=== PATIENT | male | born 1985 | race African-American/Black ===

== ENCOUNTER 2017-11-07 16:06 | Emergency (ER) | payer SELFPAY ==
[2017-11-07 17:20] LABS: AUTOMATED NEUTROPHIL # 2.5 TH/MM3 (1.8-7.7); BASOPHIL # 0.1 TH/MM3 (0-0.2); BASOPHIL % 2.4 % (0.0-2.0); HEMATOCRIT 44.9 % (39.0-51.0); HEMO FLAGS DIFF FINAL; HEMOGLOBIN 14.4 GM/DL (13.0-17.0); LYMPH % 29.4 % (9.0-44.0); LYMPHOCYTE # 1.4 TH/MM3 (1.0-4.8); MEAN CELL VOLUME 93.9 FL (80.0-100.0); MEAN PLATELET VOLUME 9.4 FL (7.0-11.0); MONO % 17.4 % (0.0-8.0); MONOCYTE # 0.8 TH/MM3 (0-0.9); NEUT % 50.8 % (16.0-70.0); PLATELET COUNT 217 TH/MM3 (150-450); RED BLOOD COUNT 4.78 MIL/MM3 (4.50-5.90); RED CELL DISTRIBUTION WIDTH 13.1 % (11.6-17.2); WHITE BLOOD COUNT 4.8 TH/MM3 (4.0-11.0)
[2017-11-07] MEDS: ONDANSETRON HCL 4 MG/2 ML VIAL IVP (17:27)
[2017-11-07] MEDS: MORPHINE SULFATE 4 MG/ML INJ IV PUSH (17:27)
[2017-11-07 17:28] LABS: CHLORIDE 100 MEQ/L (98-107); SODIUM (NA) 134 MEQ/L (136-145)
[2017-11-07] MEDS: MORPHINE SULFATE 2 MG/ML INJ IV PUSH (17:28)
[2017-11-07 17:30] LABS: CALCIUM 8.7 MG/DL (8.5-10.1); POTASSIUM 4.3 MEQ/L (3.5-5.1)
[2017-11-07 17:31] LABS: ANION GAP 6 MEQ/L (5-15); BICARBONATE 28.5 MEQ/L (21.0-32.0); BLOOD UREA NITROGEN 14 MG/DL (7-18); GLUCOSE,RANDOM 93 MG/DL (74-106)
[2017-11-07 17:34] LABS: GLOMERULAR FILTRATION RATE 60 ML/MIN (>89)
== END 2017-11-07 18:18 | disposition home or self-care (01) ==
LOC: PHEFT 16:06
DX: G43.009 Migraine without aura, not intractable, without status migrainosus (principal); J09.X2 Influenza due to identified novel influenza A virus with other respiratory manifestations
CPT/HCPCS: 80048; 85025; 87804; 87804-59; 96374; 96375; 99284-25